=== PATIENT | female | born 1985 | race Asian ===

== ENCOUNTER 2018-03-13 03:28 | Emergency (ER) | payer OTHER ==
[~2018-03-13] VITALS: Ht 162.6 cm; Wt 42.0 kg
[2018-03-13 03:33] VITALS: BP 116/83
[2018-03-13] MEDS ORDERED: ONDANSETRON 4MG ODT PO ONE (04:30)
[2018-03-13] MEDS ORDERED: LORAZEPAM 1MG TABLET PO ONE (06:15)
== END 2018-03-13 06:20 | disposition left against medical advice (07) ==
LOC: ER 03:28
DX: F41.0 Panic disorder [episodic paroxysmal anxiety] (principal); F32.9 Major depressive disorder, single episode, unspecified
CPT/HCPCS: 81025; 99284; Q0162